=== PATIENT | male | born 1995 | race African-American/Black ===

== ENCOUNTER 2020-01-28 15:33 | Emergency (ER) | payer OTHER, SELFPAY ==
--- NOTE | 2020-01-28 15:38 | PC.NURSE ---
Patient left before being triaged, advised of risks of leaving continue to walk out.
== END 2020-01-28 15:57 | disposition left against medical advice (07) ==
LOC: ANHED 15:40
DX: Z53.21 Procedure and treatment not carried out due to patient leaving prior to being seen by health care provider (principal)
CPT/HCPCS: 99199

== ENCOUNTER 2021-03-19 12:06 | Emergency (ER) | payer OTHER, SELFPAY ==
--- NOTE | ~2021-03-19 | XR_ITS ---
EXAMINATION: XR wrist RT min 3V DATE: 03/19/2021 14:06 INDICATION: Right wrist injury and pain. TECHNIQUE: 4 views of right wrist were obtained. COMPARISON: None. FINDINGS: Bone alignment is normal. No fracture. Joint spaces are well maintained. IMPRESSION: 1. Normal right wrist. Reviewed, dictated and finalized at location A. IMPRESSION: 1. Normal right wrist.
[2021-03-19 13:10] VITALS: BP 121/79; PULSE 82; RESP 16; TEMP 36.7; O2SAT 98
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
== END 2021-03-19 14:44 | disposition home or self-care (01) ==
PROVIDERS: Emergency Provider Emergency Medicine
DX: S63.501A Unspecified sprain of right wrist, initial encounter (principal); V43.52XA Car driver injured in collision with other type car in traffic accident, initial encounter
CPT/HCPCS: 73110; 99283

== ENCOUNTER 2024-06-09 14:19 | Outpatient (CLI) | payer OTHER, SELFPAY ==
--- NOTE | ~2024-06-09 | XR_ITS ---
XR hand RT min 3V Ordering provider: Fer Morales MD History: . M79.641 - Pain in right hand . Comparison: March 19, 2021 FINDINGS: BONES: fracture in the distal metaphysis of the fourth and fifth metacarpal bones with angulation. JOINT SPACES: Normal. SOFT TISSUES: Normal. IMPRESSION: fractures in the distal metaphysis of the fourth and fifth metacarpal bones with angulation. Reviewed, dictated and finalized at location A. 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
== END 2024-06-09 14:20 | disposition home or self-care (01) ==
PROVIDERS: Visit Provider Plastic Surgery
DX: S62.394A Other fracture of fourth metacarpal bone, right hand, initial encounter for closed fracture (principal); S62.396A Other fracture of fifth metacarpal bone, right hand, initial encounter for closed fracture; X58.XXXA Exposure to other specified factors, initial encounter
CPT/HCPCS: 73130